=== PATIENT | male | born 1965 ===

== ENCOUNTER 2023-06-05 08:02 | Outpatient (CLI) | payer OTHER, SELFPAY ==
--- NOTE | ~2023-06-05 | CT_ITS ---
EXAMINATION:CT diagnostic chest wo con DATE: 06/05/2023 08:20 INDICATION: Chronic cough. TECHNIQUE: Computed tomography (CT) of the chest was performed without intravenous contrast. Automate d exposure control and iterative reconstruction technique were employed. The dose-length product (DLP ) was 713.59 mGy-cm. COMPARISON: None. FINDINGS: There is mild emphysema. There is mild atelectasis bilaterally. There are groundglass opaci ties in posterior segment right upper lobe. There are a few scattered nodules in the lungs measuring up to 5 mm, likely benign. There is scarring in paraspinal right lower lobe. No pleural effusion. The heart size is normal. No pericardial effusion. There is a small sliding hiatal hernia. There is diff use hepatic steatosis. There is mild thoracic spondylosis. IMPRESSION: 1. Groundglass opacities in posterior segment right upper lobe, likely inflammation or infection. 2. Mild emphysema. 3. Mild scarring in paraspinal right lower lobe. Reviewed, dictated and finalized at location E. IMPRESSION: 1. Groundglass opacities in posterior segment right upper lobe, likely inflamma tion or infection. 2. Mild emphysema. 3. Mild scarring in paraspinal right lower lobe.
== END 2023-06-05 08:03 ==
LOC: MICIMG 08:05
DX: R05.3 Chronic cough (principal); J43.9 Emphysema, unspecified
CPT/HCPCS: 71250